=== PATIENT | male | born 1990 | race Two or more races ===

== ENCOUNTER 2020-06-15 23:03 | Emergency (ER) | payer OTHER ==
[~2020-06-15] VITALS: Ht 170.2 cm; Wt 95.3 kg
[2020-06-16 01:54] LABS: Basophils # (auto) 0.1 10 ^3/uL (0-0.2); Basophils % (auto) 0.5 % (0.0-2.0); Eosinophils # (auto) 0.1 10 ^3/uL (0-0.8); Eosinophils % (auto) 0.9 % (0.0-7.0); Hematocrit 44.7 % (41.0-53.0); Hemoglobin 15.3 g/dL (13.5-17.5); Lymphocytes # (auto) 2.4 10 ^3/uL (0.4-5.4); Lymphocytes % (auto) 21.6 % (10.0-50.0); Mean Corpuscular Hemoglobin 30.2 pg (28.0-32.0); Mean Corpuscular Hgb Conc. 34.3 g/dL (32.0-36.0); Monocytes # (auto) 0.8 10 ^3/uL (0-1.3); Monocytes % (auto) 6.9 % (0.0-12.0); Neutrophils # (auto) 7.7 10 ^3/uL (1.6-8.6); Neutrophils % (auto) 70.1 % (37.0-80.0); Nucleated Red Blood Cells % 0.1 %; Red Blood Cells 5.08 10^6/uL (4.5-5.90); Red Cell Distribution Width 13.2 % (11.8-14.3); White Blood Cell 10.9 10^3/uL (4.4-10.8)
[2020-06-16 02:16] LABS: Albumin 4.2 g/dL (3.4-5.0); Calcium 9.3 mg/dL (8.5-10.1); Magnesium 2.5 mg/dL (1.6-2.6); Potassium 4.3 mmol/L (3.5-5.1)
[2020-06-16 02:18] LABS: BUN/Creatinine Ratio 15.5; Salicylate < 1.7 mg/dL (2.8-20.0)
[2020-06-16 02:21] LABS: Bilirubin, Total 0.4 mg/dL (0.2-1.0)
[2020-06-16 02:32] LABS: Acetaminophen < 2.0 ug/mL (10-30)
[2020-06-16 14:30] LABS: Urine Bacteria NONE SEEN /hpf (None Seen); Urine Blood Negative /uL (Negative); Urine Mucus FEW (None Seen); Urine Specific Gravity 1.032 (1.001-1.035); Urine WBC <1 /hpf (0 - 3)
[2020-06-16 14:57] LABS: Amphetamine Screen, Urine NEGATIVE (NEGATIVE); Barbiturate Scree,Urine NEGATIVE (NEGATIVE); Benzodiazephine Screen, Urine NEGATIVE (NEGATIVE); Cannabinoid Screen, Urine POSITIVE (NEGATIVE); Cocaine Screen, Urine NEGATIVE (NEGATIVE); Opiate Scree,Urine NEGATIVE (NEGATIVE); Phencyclidine Screen, Urine NEGATIVE (NEGATIVE)
[2020-06-16] MEDS: OLANZapine 5 MG TAB PO SCH (15:12)
[2020-06-17] MEDS: OLANZapine 5 MG TAB PO SCH (10:56)
[2020-06-17 19:26] VITALS: BP 116/60
== END 2020-06-17 19:47 | disposition short-term general hospital (02) ==
LOC: ER 23:03
DX: R45.851 Suicidal ideations (principal); R53.83 Other fatigue; R53.1 Weakness; F32.9 Major depressive disorder, single episode, unspecified; Z20.822 Contact with and (suspected) exposure to COVID-19
CPT/HCPCS: 36415; 80053; 80307; 80320; 80329; 81001; 83735; 85025; 87426; 99285; C9803; U0003

== ENCOUNTER 2021-07-23 17:03 | Emergency (ER) | payer MEDICAID, OTHER ==
[~2021-07-23] VITALS: Ht 167.6 cm; Wt 74.8 kg
[2021-07-23 17:04] VITALS: BP 99/68
[2021-07-23] MEDS ORDERED: SODIUM CHLORIDE 0.9% 1,000 ML IVB ONE (17:15)
== END 2021-07-23 18:12 | disposition home or self-care (01) ==
LOC: ER 17:03
DX: F10.129 Alcohol abuse with intoxication, unspecified (principal); Y90.8 Blood alcohol level of 240 mg/100 ml or more
CPT/HCPCS: 96360; 99283; J7030